=== PATIENT | male | born 1970 | race Caucasian/White ===

== ENCOUNTER → 2018-06-17 | Outpatient (CLI) | payer OTHER | LOC: FIMAGING 11:00 | PROVIDERS: ATTEND Orthopaedic Surgery | DX: M16.12 Unilateral primary osteoarthritis, left hip (principal) ==

== ENCOUNTER 2018-07-03 06:02 | Inpatient (IN) | payer OTHER ==
[~2018-07-03 06:02] MED LIST: ROPIVACAINE 0.2% 80 MG, EPINEPHrine 0.2 MG, KETOROLAC TROMETHAMINE 30 MG, morphINE 10 M... IU ONE; TRANEXAMIC ACID 1,000 MG in NS 100 ML IV ONE
--- NOTE | 2018-07-03 06:40 | PDHPUP ---
History & Physical Update H&P update statement: This history and physical update is based on an assessment of the patient which was completed after admission or registration (within 24 hours), but prior to the surgery/procedure. H&P update: no change in patient's condition since H&P completed
--- NOTE | 2018-07-03 06:41 | PDIAF ---
- Diagnosis Diagnosis: left hip djd Code Status: Full Code - Medication Management Discharge Medications: electronically signed and located in the Home Medication List. - Orders Services needed: Home Care, Physical Therapy Home Care Face to Face: I certify that this patient was under my care and that I had the required iugs-ot-rnac encounter meeting the encounter requirements on the discharge day. My findings support the fact that the patient is homebound as defined in Home Care Face to Face Continued: CMS Chapter 7 Medicare Benefits Manual 30.1.1 , The condition of the patient is such that there exists a normal inability to leave home and consequently, leaving home would require a considerable and taxing effort. Diet Recommendation: no restrictions on diet Diet Texture: Regular Texture Diet Additional Instructions: TOTAL JOINT ARTHROPLASTY DISCHARGE INSTRUCTIONS 1. Your surgeon follows the [facility] protocol for reducing your risk of DVT (blood clots) following surgery. Medication will be ordered to prevent blood clots. A sudden increase in calf pain and/or swelling could indicate a blood clot in your leg. If this occurs, please call your surgeon or his/her underwriting assistant. An ultrasound of the leg may be necessary to diagnose a blood clot. If you have conditions that make you a higher risk for blood clots, your surgeon may use more aggressive ways to prevent them. Notify your surgeon if you think you are a high risk for blood clots. 2. Wear your white surgical stockings (LINDEN hose) for 2 weeks. This decreases your swelling and may help prevent blood clots. It is ok to remove LINDEN hose at night time to give your legs a break. 3. Swelling and bruising in the surgical leg is common. If you feel that it is excessive, please notify your surgeon. 4. Elevate your surgical leg with the ankle above the hip several times every day. Please keep the leg straight when you elevate by putting pillows under your foot. Do not put pillows under your knee. This will make being able to fully straighten more difficult. This is uncomfortable, but try to do it as much as possible. 5. For total knee replacements use compressive wrap on your knee for 3-5 days after surgery, then you can discontinue it. 6. Use a walker or crutches for 1-2 weeks. Progress your weight-bearing as tolerated. You may start to use a cane when you feel stable and safe. 7. You will receive physical therapy instructions in the hospital. Continue those exercises at home. There are additional exercises in the total joint booklet you were given before surgery. Outpatient physical therapy will begin 7- 10 days after surgery. Please schedule this in advance. 8. Use ice on your knee at least 3-5 times every day for 30 minutes. This helps reduce pain and swelling. Also use it at night before falling asleep. 9. Leave your surgical dressing in place for 2 weeks. Your dressing is water resistant, but not waterproof. Cover it with Saran Wrap or Edvty-l-Hasj before showering. You may shower as soon as you feel safe entering a shower. If you notice bleeding from your incision 2 or 3 days after surgery, please notify your surgeon. 10. Due to narcotics, decreased activity and altered diet, most patients experience constipation after surgery. Use rlnl-lng-haujndp stool softeners while you are on narcotics. 11. You may drive a car when you are comfortable bearing weight, have good muscular control of your leg and are off narcotics. This usually occurs 2-4 weeks after surgery, depending on which leg was operated on. 12. If there are questions not addressed here, please refer the [facility] book given for more information. If you still have questions, please contact your surgeon s office. 13. If you have a life-threatening emergency, please call 911 and go to the emergency room immediately. For non-life threatening emergencies, please call your physicians office for advice before going to the emergency room. - Follow Up Care Current Providers and Referrals: Torres REILLY [Other] Rudi Jimenez MD [Medical Doctor] -
[2018-07-03] MEDS ORDERED: ceFAZolin 1 GM/5 ML SYR ONE ×3 (06:42→16:48)
[2018-07-03] MEDS ORDERED: ceFAZolin 2 GM/DEXTROSE 100 ML IV ONE ×2 (06:50→16:00)
[2018-07-03] MEDS ORDERED: FAMOTIDINE 20 MG TAB PO ONE (06:50)
[2018-07-03] MEDS ORDERED: ACETAMINOPHEN 325 MG TAB PO ONE (06:50)
[2018-07-03] MEDS ORDERED: LR 1,000 ML IV ONE (06:50)
--- NOTE | 2018-07-03 08:05 | PDANEPAE ---
ANE History of Present Illness cisco ANE Past Medical History - Cardiovascular History Hx Hypertension: No Hx Arrhythmias: No Hx Chest Pain: No Hx Coronary Artery / Peripheral Vascular Disease: No Hx CHF / Valvular Disease: No Hx Palpitations: No - Pulmonary History Hx COPD: No Hx Asthma/Reactive Airway Disease: No Hx Recent Upper Respiratory Infection: No Hx Oxygen in Use at Home: No Hx Sleep Apnea: No Sleep Apnea Screening Result - Last Documented: Negative - Neurologic History Hx Cerebrovascular Accident: No Hx Seizures: No Hx Dementia: No - Endocrine History Hx Diabetes: No Hypothyroid: No Hyperthyroid: No Obesity: no - Renal History Hx Renal Disorders: Yes Renal History Comment: hx kidney stones in 20's - Liver History Hx Hepatic Disorders: No - Neurological & Psychiatric Hx Hx Neurological and Psychiatric Disorders: No - Cancer History Hx Cancer: No - Congenital Disorder History Hx Congenital Disorders: No - GI History GERD: no Hx Gastrointestinal Disorders: No - Other Health History Other Health History: osteoarthritis - Chronic Pain History Chronic Pain: No - Surgical History Prior Surgeries: left knee scope, ACL repair. right knee scope, ACL repair ANE Review of Systems Review of Systems: - Exercise capacity Exercise capacity: >=4 METS METS (RN): 5 METS ANE Patient History - Allergies Allergies/Adverse Reactions: No Known Allergies Allergy (Verified 06/20/18 13:54) - Home Medications Home medications: home medication list seen and reviewed Home Medications: Herbals/Supplements -Info Only 1 ea PO DAILY 06/20/18 [Last Taken Unknown] Ibuprofen [Motrin (*)] 200 mg PO DAILY PRN 06/20/18 [Last Taken 3 Days Ago ~] Sildenafil Citrate [Viagra] 25 mg PO DAILY PRN 06/20/18 [Last Taken Unknown] - NPO status NPO Since - Liquids (Date): 07/03/18 NPO Since - Liquids (Time): 06:00 NPO Since - Solids (Date): 07/02/18 NPO Since - Solids (Time): 20:00 - Anes Hx Anes Hx: no prior problems - Smoking Hx Smoking Status: Never smoked - Family Anes Hx Family Hx Anesthesia Complications: unknown, pt is adopted ANE Labs/Vital Signs - Vital Signs Blood Pressure: 155/96 Heart Rate: 76 Respiratory Rate: 15 O2 Sat (%): 94 Height: 177.8 cm Weight: 87.543 kg ANE Physical Exam - Airway Mallampati Score: Class 2 Mouth exam: normal dental/mouth exam - Pulmonary Pulmonary: no respiratory distress - Cardiovascular Cardiovascular: regular rate and rhythym - ASA Status ASA Status: I ANE Anesthesia Plan Anesthesia Plan: spinal
[2018-07-03] MEDS ORDERED: MIDAZOLAM 2 MG/2 ML VIAL IVP ONE (08:06)
[2018-07-03] MEDS ORDERED: BUPIVACAINE 0.5% 30 ML SDV ONE (08:09)
[2018-07-03] MEDS ORDERED: LIDOCAINE 2% 5 ML SDV ONE (08:15)
[2018-07-03] MEDS ORDERED: PROPOFOL/EMULSION 500 MG/50 ML BOTTLE IV ONE ×4 (08:15→15:46)
[2018-07-03] MEDS ORDERED: PHENYLEPHRINE HCL 100 MCG/ML SYR ONE (09:06)
[2018-07-03] MEDS ORDERED: ePHEDrine SULFATE 25 MG/5 ML SYR ONE (09:16)
[2018-07-03] MEDS ORDERED: PHENYLEPHRINE 10 MG/ML SDV ONE (09:23)
[2018-07-03] MEDS ORDERED: ONDANSETRON 4 MG/2 ML VIAL IVP PRN ×3 (10:47→16:25)
[2018-07-03] MEDS ORDERED: ALBUTEROL 3 ML DEYVIAL IH PRN ×2 (10:47→16:25)
[2018-07-03] MEDS ORDERED: NALOXONE HCL 0.4 MG/ML INJ IVP PRN ×2 (10:47→16:25)
[2018-07-03] MEDS ORDERED: LR 500 ML IV PRN ×2 (10:47→16:25)
[2018-07-03] MEDS ORDERED: CYCLOBENZAPRINE 10 MG TAB PO PRN (10:49)
[2018-07-03] MEDS ORDERED: diphenhydrAMINE 25 MG CAP PO PRN (10:49)
[2018-07-03] MEDS ORDERED: TEMAZEPAM 15 MG CAP PO PRN (10:49)
[2018-07-03] MEDS ORDERED: PROMETHAZINE HCL 25 MG SUPPR PR PRN (10:49)
[2018-07-03] MEDS ORDERED: PROMETHAZINE HCL 25 MG/ML INJ IVP PRN (10:49)
[2018-07-03] MEDS ORDERED: MAGNESIUM HYDROXIDE 30 ML UDCUP PO PRN (10:49)
[2018-07-03] MEDS ORDERED: METOCLOPRAMIDE 10 MG/2 ML VIAL IVP PRN (10:49)
[2018-07-03] MEDS ORDERED: LACTULOSE 20 GM/30 ML UDCUP PO PRN (10:49)
[2018-07-03] MEDS ORDERED: BISACODYL 10 MG SUPP PR PRN (10:49)
[2018-07-03] MEDS ORDERED: POLYETHYLENE GLYCOL 3350 17 GM PKT PO PRN (10:49)
[2018-07-03] MEDS ORDERED: DIPHENOXYLATE/ATROPINE LOMOTIL 1 TAB PO PRN (10:49)
[2018-07-03] MEDS ORDERED: ONDANSETRON DISINTEGRATING 4 MG TAB PO PRN (10:49)
--- NOTE | 2018-07-03 10:49 | POSTOPPROG ---
Post Op Note Date of Operation: 07/03/18 Surgeon: Rudi Jimenez Supervisor Process Testing: sukhdev Anesthesiologist: [place] Anesthesia: Spinal Pre-op Diagnosis: left hip djd Post-op Diagnosis: same Indication: same Procedure: left cisco Inf/Abcess present in the surg proc area at time of surgery?: No Depth: Deep Incisional (Fascial) EBL: 100-500 Drains: Hemovac
[2018-07-03] MEDS ORDERED: LR 1,000 ML IV SCH (11:00)
--- NOTE | 2018-07-03 11:06 | POSTANESTH ---
Post Anesthetic Evaluation Cardiovascular Status: Normal, Stable Respiratory Status: Normal, Stable Level of Consciousness/Mental Status: Can Participate in Eval Pain Control: Adequate, Prn Tx Ordered Nausea/Vomiting Control: Adequate, Prn Tx Ordered Complications Possibly Related to Anesthesia: None Noted
[2018-07-03] MEDS ORDERED: TRANEXAMIC ACID 650 MG TAB PO SCH (14:00)
[2018-07-03] MEDS ORDERED: BUPIVACAINE/EPI 0.5% 30 ML SDV ONE (14:32)
[2018-07-03] MEDS ORDERED: fentaNYL 100 MCG/2 ML INJ ONE (14:40)
[2018-07-03] MEDS: fentaNYL 100 MCG/2 ML INJ IVP PRN ×2 (14:41→15:14)
--- NOTE | 2018-07-03 14:42 | PDMN ---
Medical Necessity Medical [place] [facility] [place] IP OP: L EKTA -- PER [employer] [id number] APPROVED PLEASE NOTIFY UPON ADMISSION
[2018-07-03] MEDS ORDERED: BUPIVACAINE/DEXTROSE 7.5MG/ML 2 ML SPINAL AMP SP ONE (15:46)
--- NOTE | 2018-07-03 15:50 | PDANEPAE ---
ANE Past Medical History - Cardiovascular History Hx Hypertension: No Hx Arrhythmias: No Hx Chest Pain: No Hx Coronary Artery / Peripheral Vascular Disease: No Hx CHF / Valvular Disease: No Hx Palpitations: No - Pulmonary History Hx COPD: No Hx Asthma/Reactive Airway Disease: No Hx Recent Upper Respiratory Infection: No Hx Oxygen in Use at Home: No Hx Sleep Apnea: No Sleep Apnea Screening Result - Last Documented: Negative - Neurologic History Hx Cerebrovascular Accident: No Hx Seizures: No Hx Dementia: No - Endocrine History Hx Diabetes: No Hypothyroid: No Hyperthyroid: No Obesity: no - Renal History Hx Renal Disorders: Yes Renal History Comment: hx kidney stones in 20's - Liver History Hx Hepatic Disorders: No - Neurological & Psychiatric Hx Hx Neurological and Psychiatric Disorders: No - Cancer History Hx Cancer: No - Congenital Disorder History Hx Congenital Disorders: No - GI History GERD: no Hx Gastrointestinal Disorders: No - Other Health History Other Health History: osteoarthritis - Chronic Pain History Chronic Pain: No - Surgical History Prior Surgeries: left knee scope, ACL repair. right knee scope, ACL repair ANE Review of Systems Review of Systems: - Exercise capacity METS (RN): 5 METS ANE Patient History - Allergies Allergies/Adverse Reactions: No Known Allergies Allergy (Verified 06/20/18 13:54) - Home Medications Home Medications: Herbals/Supplements -Info Only 1 ea PO DAILY 06/20/18 [Last Taken Unknown] Ibuprofen [Motrin (*)] 200 mg PO DAILY PRN 06/20/18 [Last Taken 3 Days Ago ~] Sildenafil Citrate [Viagra] 25 mg PO DAILY PRN 06/20/18 [Last Taken Unknown] - NPO status NPO Since - Liquids (Date): 07/03/18 NPO Since - Liquids (Time): 06:00 NPO Since - Solids (Date): 07/02/18 NPO Since - Solids (Time): 20:00 - Smoking Hx Smoking Status: Never smoked - Family Anes Hx Family Hx Anesthesia Complications: unknown, pt is adopted ANE Labs/Vital Signs - Vital Signs Blood Pressure: 106/67 Heart Rate: 75 Respiratory Rate: 16 O2 Sat (%): 93 Height: 177.8 cm Weight: 87.543 kg ANE Physical Exam - Airway Neck exam: FROM Mallampati Score: Class 1 Mouth exam: normal dental/mouth exam - Pulmonary Pulmonary: no respiratory distress, no rales or rhonchi, clear to auscultation - Cardiovascular Cardiovascular: regular rate and rhythym, no murmur, rub, or gallop - ASA Status ASA Status: I ANE Anesthesia Plan Anesthesia Plan: spinal
[2018-07-03] MEDS ORDERED: ALBUMIN 5% 250 ML BOTTLE IV ONE (16:11)
[2018-07-03] MEDS ORDERED: MIDAZOLAM 2 MG/2 ML VIAL ONE (16:15)
[2018-07-03] MEDS ORDERED: DIAZEPAM 5 MG/ML 1 ML SYR IVP PRN (16:25)
[2018-07-03] MEDS ORDERED: MEPERIDINE 25 MG/0.5 ML AMP IVP PRN (16:25)
[2018-07-03] MEDS ORDERED: DEXAMETHASONE 4 MG/ML VIAL IVP PRN (16:25)
[2018-07-03] MEDS ORDERED: fentaNYL 100 MCG/2 ML INJ IVP PRN (16:25)
[2018-07-03] MEDS ORDERED: ceFAZolin 1 GM VIAL ONE (16:32)
[2018-07-03] MEDS ORDERED: CALCIUM CHLORIDE 1 GM/10 ML INJ ONE (16:47)
[2018-07-03] MEDS ORDERED: ceFAZolin 2 GM/DEXTROSE 100 ML IV SCH (17:00)
--- NOTE | 2018-07-03 17:25 | POSTOPPROG ---
Post Op Note Date of Operation: 07/03/18 Surgeon: Rudi Jimenez Straight Edger: sukhdev Anesthesiologist: elkin Anesthesia: Spinal Pre-op Diagnosis: dislocation left cisco Post-op Diagnosis: billy Indication: same Procedure: revision arthroplasty left cisco Inf/Abcess present in the surg proc area at time of surgery?: No Depth: Deep Incisional (Fascial) EBL: 100-500 Drains: Hemovac
--- NOTE | 2018-07-03 19:26 | POSTANESTH ---
Post Anesthetic Evaluation Cardiovascular Status: Normal, Stable, Similar to Pre-Op Cond Respiratory Status: Normal, Stable, Similar to Pre-op Cond. Level of Consciousness/Mental Status: Can Participate in Eval, Alert and Oriented Pain Control: Adequate, Prn Tx Ordered Nausea/Vomiting Control: Adequate, Prn Tx Ordered Complications Possibly Related to Anesthesia: None Noted
[2018-07-03] MEDS: ACETAMINOPHEN 325 MG TAB PO SCH ×2 (19:55→23:38)
[2018-07-03] MEDS: FAMOTIDINE 20 MG TAB PO SCH (21:21)
[2018-07-03] MEDS: ASPIRIN 325 MG TAB PO SCH (21:21)
[2018-07-03] MEDS: TRANEXAMIC ACID 650 MG TAB PO SCH (21:22)
[2018-07-03] MEDS: SENNOSIDES/DOCUSATE SODIUM TAB PO SCH (21:22)
[2018-07-03] MEDS: oxyCODONE IR 5 MG TAB PO PRN (21:46)
[2018-07-03] MEDS: ceFAZolin 2 GM/DEXTROSE 100 ML IV SCH (23:38)
[2018-07-04] MEDS: oxyCODONE IR 5 MG TAB PO PRN ×2 (00:33→04:50)
[2018-07-04] MEDS: ACETAMINOPHEN 325 MG TAB PO SCH (04:49)
[2018-07-04] MEDS: TRANEXAMIC ACID 650 MG TAB PO SCH (04:50)
--- NOTE | 2018-07-04 07:38 | PDIAF ---
- Diagnosis Diagnosis: left hip djd Code Status: Full Code - Medication Management Discharge Medications: electronically signed and located in the Home Medication List. - Orders Services needed: Home Care, Physical Therapy Home Care Face to Face: I certify that this patient was under my care and that I had the required zgej-li-oihd encounter meeting the encounter requirements on the discharge day. My findings support the fact that the patient is homebound as defined in Home Care Face to Face Continued: CMS Chapter 7 Medicare Benefits Manual 30.1.1 , The condition of the patient is such that there exists a normal inability to leave home and consequently, leaving home would require a considerable and taxing effort. Diet Recommendation: no restrictions on diet Diet Texture: Regular Texture Diet Additional Instructions: TOTAL JOINT ARTHROPLASTY DISCHARGE INSTRUCTIONS 1. Your surgeon follows the [facility] protocol for reducing your risk of DVT (blood clots) following surgery. Medication will be ordered to prevent blood clots. A sudden increase in calf pain and/or swelling could indicate a blood clot in your leg. If this occurs, please call your surgeon or his/her phys assistant. An ultrasound of the leg may be necessary to diagnose a blood clot. If you have conditions that make you a higher risk for blood clots, your surgeon may use more aggressive ways to prevent them. Notify your surgeon if you think you are a high risk for blood clots. 2. Wear your white surgical stockings (LINDEN hose) for 2 weeks. This decreases your swelling and may help prevent blood clots. It is ok to remove LINDEN hose at night time to give your legs a break. 3. Swelling and bruising in the surgical leg is common. If you feel that it is excessive, please notify your surgeon. 4. Elevate your surgical leg with the ankle above the hip several times every day. Please keep the leg straight when you elevate by putting pillows under your foot. Do not put pillows under your knee. This will make being able to fully straighten more difficult. This is uncomfortable, but try to do it as much as possible. 5. For total knee replacements use compressive wrap on your knee for 3-5 days after surgery, then you can discontinue it. 6. Use a walker or crutches for 1-2 weeks. Progress your weight-bearing as tolerated. You may start to use a cane when you feel stable and safe. 7. You will receive physical therapy instructions in the hospital. Continue those exercises at home. There are additional exercises in the total joint booklet you were given before surgery. Outpatient physical therapy will begin 7- 10 days after surgery. Please schedule this in advance. 8. Use ice on your knee at least 3-5 times every day for 30 minutes. This helps reduce pain and swelling. Also use it at night before falling asleep. 9. Leave your surgical dressing in place for 2 weeks. Your dressing is water resistant, but not waterproof. Cover it with Saran Wrap or Pqrbg-t-Pxeq before showering. You may shower as soon as you feel safe entering a shower. If you notice bleeding from your incision 2 or 3 days after surgery, please notify your surgeon. 10. Due to narcotics, decreased activity and altered diet, most patients experience constipation after surgery. Use dlhy-szu-hvxrsdg stool softeners while you are on narcotics. 11. You may drive a car when you are comfortable bearing weight, have good muscular control of your leg and are off narcotics. This usually occurs 2-4 weeks after surgery, depending on which leg was operated on. 12. If there are questions not addressed here, please refer the [facility] book given for more information. If you still have questions, please contact your surgeon s office. 13. If you have a life-threatening emergency, please call 911 and go to the emergency room immediately. For non-life threatening emergencies, please call your physicians office for advice before going to the emergency room. - Follow Up Care Current Providers and Referrals: Torres REILLY [Other] Rudi Jimenez MD [Medical Doctor] -
--- NOTE | 2018-07-04 07:41 | SOAPPROG ---
SOAP Progress Note Assessment/Plan: Assessment: s/p cisco Plan:d/c home wbat anterior hip precautions dvt precautions 07/04/18 07:38 Subjective: min pain no cp or sob Objective: Vital Signs Temp Pulse Resp BP Pulse Ox 36.6 C 64 16 91/50 L 92 07/04/18 04:16 07/04/18 04:16 07/04/18 04:16 07/04/18 04:16 07/04/18 04:16 Laboratory Results 07/04/18 04:35 07/03/18 07/04/18 07/05/18 05:59 05:59 05:59 Intake Total 3370 Output Total 2535 Balance 835 dressing intact intact pf,df,ehl toes warm and pink neg homnans shruti xrays anatomic alignemnt no fx or lucency ICD10 Worksheet Patient Problems: Problems Problem Status Onset Hip arthritis Acute - ICD10 Problem Qualifiers (1) Hip arthritis
[2018-07-04] MEDS: ceFAZolin 2 GM/DEXTROSE 100 ML IV SCH (07:45)
[2018-07-04] MEDS: ASPIRIN 325 MG TAB PO SCH (07:46)
[2018-07-04] MEDS: SENNOSIDES/DOCUSATE SODIUM TAB PO SCH (07:48)
[2018-07-04] MEDS: FAMOTIDINE 20 MG TAB PO SCH (07:48)
[2018-07-04 08:20] VITALS: BP 109/65
--- NOTE | 2018-07-04 13:56 | ASMTLACE ---
BIGG Length of stay for Answers: 2 days current admission Acuity / Level of Answers: Yes Care: Did the patient have an inpatient admission? # of Emergency department Answers: 0 visits in the last 6 months Score: 5 Date Signed: 07/04/2018 01:53 PM Electronically Signed By:SUZAN Hubbard
--- NOTE | 2018-07-04 13:57 | ASMTCMCOM ---
CM Note CM Note Notes: Pt had planned OA of hip. PT rec home/outpatient. Pt declines [facility] PT. No CM d/c needs identified. Date Signed: 07/04/2018 01:54 PM Electronically Signed By:SUZAN Hubbard
--- NOTE | 2018-07-17 14:59 | GOP ---
[f rep st] OPERATIVE REPORT DATE OF OPERATION: 07/03/2018 SURGEON: Rudi Jimenez MD PASTRY SUPERVISOR: Simon Lowery CST, SHARED SERVICES AND OUTSOURCING MANAGER who was medical necessity for the entirety of the case. PREOPERATIVE DIAGNOSIS: Left hip degenerative joint disease. POSTOPERATIVE DIAGNOSIS: Left hip degenerative joint disease. PROCEDURE PERFORMED: Left total hip arthroplasty. FINDINGS: ESTIMATED BLOOD LOSS: 300 cc. INDICATIONS: The patient is a 48-year-old gentleman with end-stage arthritis to his left and right h ips. He has failed all attempts at conservative management. I have, therefore, recommended operative intervention with total hip replacement. I have outlined the surgical procedure, risks, benefits, and alternatives. He wished to proceed. Written consent was signed and placed in patient's chart. DESCRIPTION OF PROCEDURE: The patient was identified in the preanesthesia area. The left hip clearly demarcated as the operative site with an indelible marker. He was given 2 g of Ancef intravenously i n route to the operative suite. In the OR, spinal anesthetic was placed, followed by additional sedat ion. He was positioned in the supine position. The pelvis and both lower extremities were sterilely p repped and draped in usual fashion. Appropriate time-out procedure was carried out. Attention was first turned to the right hemipelvis. A 2 cm incision was made. Three pins were then pl aced and a pelvic reference array affixed. Attention was then turned to the left hip. A standard ante rior approach was made. Thick subcutaneous flaps were elevated, followed by elevation of the tensor f ascia from the underlying muscle. The muscle was retracted laterally. The underlying vascular structu res were identified, cauterized, and transected. Retractors were placed in the extracapsular position . T capsulotomy was made. The retractors were placed into an intracapsular position. A bony wedge was withdrawn from the femoral neck and the femoral head was withdrawn. Attention was then turned to the acetabulum. The bony landmarks were entered in the computer in stand maged fashion. A 58 mm reamer was used with an opening angle of 40 degrees and anteversion of 20 degree s to the appropriate depth. A 58 mm acetabular shell was then selected. This was impacted and secured with a 6.5 mm x 25 mm screw. A 0-degree X3 liner was then placed confirmed to be fully seated. Attention was then turned to the femur. The femur was delivered through the use of extension of the t able, soft tissue releases, and retractor placement. Proximal canal was opened, serial broaching ramirez ied out to a size 6 stem. Trial reductions were carried out, and ultimately, a 36 mm +0 mm neck head was selected. This allowed mandaeism of leg lengths. Stability profile demonstrated external rotati on of 80 degrees, with mild subluxation of the femoral head in full extension. There was no anterior impingement with hip flexion, internal rotation. At that point, fluoroscopy was utilized there was sl ight anteversion of the cup, but given the stability profile, this was felt to be acceptable. The elsi m was then removed and a final size 6 stem was impacted, confirmed to be fully seated, and a 36 mm +0 mm neck length Biolox head was impacted across the cleansed trunnion. The hip was copiously irrigated and reduced. Stability profile was as previous. A 10-[place] drain was placed. The tissue was injected with a joint cocktail of ropivacaine, Toradol, and epinephrine. Puls atile lavage was utilized to clean out the entire hip joint, and the hip was closed in layers using 0 Vicryl for the fascia, 2-0 Monocryl, and alisa. A sterile compressive dressing was applied. The pa tient was awakened, taken to recovery in good, stable condition. IMPLANTS: Trident II acetabular shell, size 58 mm 6.5 mm bone screw, Trident X3 0 degree polyethylen e insert 36 mm, Accolade II 127 degree neck angle hip stem size 6, Biolox Delta ceramic head, 36 mm + 0 mm neck length. DISPOSITION: To the recovery room as above. /[id number]/MODL
--- NOTE | 2018-07-17 14:59 | GDS ---
[f rep st] DISCHARGE SUMMARY ADMISSION DIAGNOSIS: Left hip degenerative joint disease. DISCHARGE DIAGNOSIS: Left hip degenerative joint disease. PROCEDURE: Left total hip arthroplasty and revision acetabular component. OPERATIVE INDICATIONS: The patient is a 48-year-old gentleman who presents for elective total hip re placement. He understood the risks, benefits, alternatives, and wished to proceed. Written consent wa s signed and placed in patient's chart. HOSPITAL COURSE: The patient was admitted to the hospital floor after undergoing initial total hip r eplacement. He sustained a dislocation anteriorly on route to the recovery room. Was ultimately taken back the same day for revision of his acetabular component. He was subsequent admitted to the floor. He had no additional complications at that time. He progressed quickly with physical therapy. At christopher e of discharge, he is tolerating an oral diet. Pain is well controlled on oral medicines. He is voidi ng without difficulty. Dressing is clean, dry, and intact. X-rays are anatomic and there is no fractu re or lucency. DISCHARGE ACTIVITIES: Weightbearing as tolerated. Anterior hip precautions. He may shower keeping th e dressing intact. Seek attention for increasing redness, swelling, drainage, discharge, or other foc al complaints. Followup at 2 weeks. DISCHARGE MEDICATIONS: Oxycodone 5 mg 1 to 2 every 6 hours p.r.n. pain, aspirin 325 mg p.o. daily, c yclobenzaprine 10 mg 1 every 6 hours p.r.n. spasm. /[id number]/MODL
--- NOTE | 2018-07-17 14:59 | GOP ---
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 POSTOPERATIVE DIAGNOSIS: Failed left total hip arthroplasty. PROCEDURE PERFORMED: Revision left total hip arthroplasty, revision of acetabular component. FINDINGS: SPECIMENS: To Pathology, none. INDICATIONS: The patient is a 48-year-old gentleman who has undergone a total hip arthroplasty. On r oute to the recovery room, he sustained an anterior dislocation of his hip. This was reduced by me in the recovery room. A repeat x-ray was obtained, which demonstrated anteversion of the acetabular com ponent. Otherwise, there was no hardware malposition. Given his young age and instability evident by as dislocation to the recovery room, I have recommended revision of the acetabular component and othe r procedures as indicated. I outlined the surgical procedure, risks, benefits, and alternatives. He w ished to proceed. Written consent was signed and placed in patient's chart. DESCRIPTION OF PROCEDURE: The patient was identified in the preanesthesia area. The left hip clearly demarcated as the operative site with an indelible marker. He was given 2 g of Ancef additionally on route to the operative suite. In the OR spinal anesthetic was placed. Attention was turned to the pe lvis and lower extremity, which was sterilely prepped and draped in usual fashion. The previous alisa from the left hip were excised. The wound was then sterilely prepped and draped in usual fashion. Appropriate time-out procedure was carried out. The skin, subcutaneous tissue, tens or fascia was dissected sharply directly back to the hip joint. At each stage, the hip was copiously irrigated with pulsatile lavage containing bacitracin. The hip was reduced. The femoral head was with drawn. The polyethylene spacer was removed with a quarter-inch osteotome. The previous cancellous scr ew was then removed and the insertion handle reattached to the acetabular component. This was reposit ioned under fluoroscopic guidance to an opening angle of 40 degrees and anteversion of 20 degrees. Th is was impacted further and secured with an additional 2 screws of 6.5 mm cancellous screws. A new 0 degree X3 liner was then placed. Trial reduction was carried out, and ultimately, the same head was i mpacted across the trunnion. The hip was copiously irrigated and the hip reduced. This demonstrated n o impingement with anterior hip flexion 90 degrees, with internal and external rotation, and full ext ension with external rotation to 90 degrees, and 10 degrees of hyperextension without any evidence of impingement or instability. The hip was copiously irrigated. A new 10-Syriac drain was placed. The tissue was injected with addit ional joint cocktail and the tissue closed in layers using 0 Vicryl, 2-0 Monocryl, alisa with a elsi rile compressive dressing. The patient was awakened, taken to recovery room in good, stable condition . TOTAL TOURNIQUET TIME: None. COMPLICATIONS: None. IMPLANTS: An additional 6.5 mm cancellous screw. 0 degree X3 liner, DISPOSITION: To the recovery room, then the floor. He will be weightbearing as tolerated. Anterior h ip precautions. /[id number]/MODL
== END 2018-07-04 10:18 | disposition home health service (06) | DRG 467 ==
LOC: F3N 06:02
PROVIDERS: ADMIT Orthopaedic Surgery; ATTEND Orthopaedic Surgery
DX: M16.12 Unilateral primary osteoarthritis, left hip (principal); T84.021A Dislocation of internal left hip prosthesis, initial encounter
CPT/HCPCS: 97116-GP; 97161-GP; 97165-GO; C1713; J0171; J0690; J1885; J2250; J2270; J2370; J2704; J2795; J3010; P9041